=== PATIENT | female | born 1940 | race Caucasian/White ===

== ENCOUNTER 2018-10-27 15:09 | Outpatient (CLI) | payer MEDICARE, MEDICAID ==
[~2018-10-27] VITALS: Ht 172.7 cm; Wt 73.0 kg
[2018-10-27] MEDS ORDERED: LEVO75TA6 PO (15:19)
[2018-10-27] MEDS ORDERED: PREG75CA PO (15:19)
[2018-10-27] MEDS ORDERED: TRAZ150T72 PO (15:19)
[2018-10-27] MEDS ORDERED: OLAN2.5T27 PO (15:19)
[2018-10-27] MEDS ORDERED: DICY10CA12 PO (15:19)
[2018-10-27] MEDS ORDERED: VENL100T2 PO (15:19)
== END 2018-10-27 15:23 | disposition home or self-care (01) ==
LOC: PREOP 15:09
PROVIDERS: ATTEND Otolaryngology Otolaryngology/Facial Plastic Surgery
DX: Z01.818 Encounter for other preprocedural examination (principal)

== ENCOUNTER 2018-10-31 06:33 | Day surgery (SDC) | payer MEDICARE, MEDICAID ==
[~2018-10-31] VITALS: Ht 172.7 cm; Wt 73.0 kg
[~2018-10-31 06:33] MED LIST: DICY10CA12 PO; LEVO75TA6 PO; OLAN2.5T27 PO; PREG75CA PO; TRAZ150T72 PO; VENL100T2 PO
--- OUTSIDE RECORDS SUMMARY | 2018-10-31 06:37 | XMS REPORT | Clinical Summary ---
Author Author Admin, E Organization [facility] Address Unknown Phone Unavailable Allergies, Adverse Reactions, Alerts Allergy Name Reaction Description Start Date Severity Status Provider MORPHINE Critical Active Navjot Skinner RMA PENICILLIN Critical Active Navjot Skinner RMA Conditions or Problems Problem Name Problem Code Onset Date Status Entry Date Provider Comment Standard Description Annotate ATRIAL FIBRILLATION 427.31 Active Navjot Skinner RMA Atrial fibrillation ANXIETY DISORDER 300.00 Active Navjot Skinner RMA Anxiety state, unspecified DEPRESSION 311 Active Navjot Skinner RMSuzan Depressive disorder, not elsewhere classified FH 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 Alex Davidson MD Other ventral hernia without mention of obstruction or gangrene Change in bowel habit Active Alex Davidson MD Other symptoms involving digestive system Dysphagia unspecified Active Alex Davidson MD Dysphagia, unspecified Body Mass Index 23.0-23.9 Adult Active Alex Davidson MD Body Mass Index between 19-24, adult GERD ICD-530.81 Inactive Agustina Charlton CASH CROP FARMER HELICOBACTER PYLORI INFECTION ICD-041.86 Inactive Agustina Charlton CASH CROP FARMER AFTERCARE FOLLOW SURGERY MUSCULOSKEL SYSTEM NEC ICD-V58.78 12/09 Inactive Agustina Charlton CASH CROP FARMER CHANGE IN BOWELS ICD-787.99 Inactive Alex Davidson MD DYSPHAGIA UNSPECIFIED ICD-787.20 Inactive Alex Davidson MD Medication List Medication Instructions Start Date Stop Date Generic Name NDC Status Provider Patient Instruction HYDROCODONE-ACETAMINOPHEN 5-325 MG ORAL TABLET 1-2 q 4-6 hrs prn HYDROCODONE-ACETAMINOPHEN 55742934657 No Longer Active Alex Davidson MD Active ACIDOPHILUS 100 MG ORAL CAPSULE 1 -3 tab q d prn LACTOBACILLUS 62070246928 No Longer Active Alex Davidson MD Active ALPRAZOLAM 1 MG ORAL TABLET 1/2 tab bid prn ALPRAZOLAM 20366272412 No Longer Active Alex Davidson MD Active EFFEXOR XR 37.5 MG ORAL CAPSULE EXTENDED RELEASE 24 HOUR 1qd 2017 VENLAFAXINE HCL 91345379131 No Longer Active Alex Davidson MD Active MELOXICAM 15 MG ORAL TABLET 1 BID MELOXICAM 08916919243 Active Alex Davidson MD Active LYRICA 50 MG ORAL CAPSULE 1 TID PREGABALIN 29666926727 Active Aelx Davidson MD Active OLANZAPINE 5 MG ORAL TABLET 1 TAB PM OLANZAPINE 29910142719 Active Alex Davidson MD Active VENLAFAXINE HCL 100 MG ORAL TABLET 1 BID VENLAFAXINE HCL 49557747130 Active Alex Davidson MD Active OXYBUTYNIN CHLORIDE ER 10 MG ORAL TABLET EXTENDED RELEASE 24 HOUR 1 DAILY OXYBUTYNIN CHLORIDE 02556975986 Active Alex Davidson MD Active LEVO-T 50 MCG ORAL TABLET 1 DAILY LEVOTHYROXINE SODIUM 74543797131 Active Alex Davidson MD Active LEVOXYL 100 MCG ORAL TABLET 1 qd LEVOTHYROXINE SODIUM 67796031580 No Longer Active MAI Briseno Active PREVPAC ORAL as directed AMOXICILL-CLARITHRO- LANSOPRAZ 66767566814 No Longer Active MAI Briseno Active TRAZODONE HCL 150 MG ORAL TABLET 1 qhs TRAZODONE HCL 84838464061 Active Alex Davidson MD Active PREVPAC ORAL as directed PREVPAC ORAL 218735 [id number] Inactive LEVOXYL 100 MCG ORAL TABLET 1 qd LEVOXYL 100 MCG ORAL TABLET 663467 LEVOTHYROXINE SODIUM Inactive EFFEXOR XR 37.5 MG ORAL CAPSULE EXTENDED RELEASE 24 HOUR 1qd 2017 EFFEXOR XR 37.5 MG ORAL CAPSULE EXTENDED RELEASE 24 HOUR VENLAFAXINE HCL Inactive ALPRAZOLAM 1 MG ORAL TABLET 1/2 tab bid prn ALPRAZOLAM 1 MG ORAL TABLET 437452 ALPRAZOLAM Inactive ACIDOPHILUS 100 MG ORAL CAPSULE 1 -3 tab q d prn ACIDOPHILUS 100 MG ORAL CAPSULE LACTOBACILLUS Inactive HYDROCODONE-ACETAMINOPHEN 5-325 MG ORAL TABLET 1-2 q 4-6 hrs prn HYDROCODONE-ACETAMINOPHEN 5-325 MG ORAL TABLET 889647 HYDROCODONE- ACETAMINOPHEN Inactive Advance Directives Directive Description Start Date PERMISSION TO SHARE Vital Signs Date Name Value Unit Range Description blood pressure, diastolic 78 mm[Hg] BP ledbetter blood pressure, systolic 120 mm[Hg] BP sys height E&M 67 [in_us] Bdy height pulse rate E&M 60 /min Heart rate temperature E&M 97.5 [degF] Body temperature weight E&M 152 [lb_av] Weight Measured blood pressure, diastolic 70 mm[Hg] BP ledbetter blood pressure, systolic 106 mm[Hg] BP sys pulse rate E&M 60 /min Heart rate temperature E&M 97.7 [degF] Body temperature weight E&M 149 [lb_av] Weight Measured Encounters Code Encounter Date Provider Facility CPT-33488 Level 4 New Patient 16:36:32 CDT Alex Davidson MD [facility] Procedures Code Procedure Name Date Entry Date Standard Description CPT-87748 Postop F/U Visit 16:34:58 OCCUPATIONAL HEALTH AND SAFETY ADVISER CPT-OV Office Visit 16:14:11 OCCUPATIONAL HEALTH AND SAFETY ADVISER CPT-11469 Postop F/U Visit 09:47:57 CDT CPT-19163 No Charge Offi Visit 10:41:21 CDT CPT-OV Office Visit 11:34:31 CDT CPT-OV Office Visit 11:19:37 CDT
--- OUTSIDE RECORDS SUMMARY | 2018-10-31 06:37 | XMS REPORT | Clinical Summary ---
Author Author Admin, E Organization [facility] Address Unknown Phone Unavailable Allergies, Adverse Reactions, Alerts Allergy Name Reaction Description Start Date Severity Status Provider MORPHINE Critical Active Navjot Skinner RMA PENICILLIN Critical Active Navjot Skinner, RMA Conditions or Problems Problem Name Problem Code Onset Date Status Entry Date Provider Comment Standard Description Annotate ATRIAL FIBRILLATION 427.31 Active Navjot Skinner RMA Atrial fibrillation ANXIETY DISORDER 300.00 Active Navjot Skinner RMA Anxiety state, unspecified DEPRESSION 311 Active Navjot Skinner RMSuzan Depressive disorder, not elsewhere classified FH 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 Navjot Skinner, RMA Family history of stroke (cerebrovascular) GERD [...] 19-24, adult GERD ICD-530.81 Inactive Agustina Charlton GENETIC SUPERVISOR HELICOBACTER PYLORI INFECTION ICD-041.86 Inactive Agustina Charlton GENETIC SUPERVISOR AFTERCARE FOLLOW SURGERY MUSCULOSKEL SYSTEM NEC ICD-V58.78 12/09 Inactive Agustina Charlton GENETIC SUPERVISOR CHANGE IN BOWELS ICD-787.99 Inactive Alex Davidson MD DYSPHAGIA UNSPECIFIED ICD-787.20 Inactive Alex Davidson MD Medication List Medication Instructions Start Date Stop Date Generic Name NDC Status Provider Patient Instruction HYDROCODONE-ACETAMINOPHEN 5-325 MG ORAL TABLET 1-2 q 4-6 hrs prn HYDROCODONE-ACETAMINOPHEN 83892851138 No Longer Active Alex Davidson MD Active ACIDOPHILUS 100 MG ORAL CAPSULE 1 -3 tab q d prn LACTOBACILLUS 08957104833 No Longer Active Alex Davidson MD Active ALPRAZOLAM 1 MG ORAL TABLET 1/2 tab bid prn ALPRAZOLAM 27765157809 No Longer Active Alex Davidson MD Active EFFEXOR XR 37.5 MG ORAL CAPSULE EXTENDED RELEASE 24 HOUR 1qd 2017 VENLAFAXINE HCL 09475107137 No Longer Active Alex Davidson MD Active MELOXICAM 15 MG ORAL TABLET 1 BID MELOXICAM 05982291031 Active Alex Davidson MD Active LYRICA 50 MG ORAL CAPSULE 1 TID PREGABALIN 76159254471 Active Alex Davidson MD Active OLANZAPINE 5 MG ORAL TABLET 1 TAB PM OLANZAPINE 55897767728 Active Alex Davidson MD Active VENLAFAXINE HCL 100 MG ORAL TABLET 1 BID VENLAFAXINE HCL 72311240140 Active Alex Davidson MD Active OXYBUTYNIN CHLORIDE ER 10 MG ORAL TABLET EXTENDED RELEASE 24 HOUR 1 DAILY OXYBUTYNIN CHLORIDE 32672335435 Active Alex Davidson MD Active LEVO-T 50 MCG ORAL TABLET 1 DAILY LEVOTHYROXINE SODIUM 95430683702 Active Alex Davidson MD Active LEVOXYL 100 MCG ORAL TABLET 1 qd LEVOTHYROXINE SODIUM 38469088138 No Longer Active MAI Briseno Active PREVPAC ORAL as directed AMOXICILL-CLARITHRO- LANSOPRAZ 26587396682 No Longer Active MAI Briseno Active TRAZODONE HCL 150 MG ORAL TABLET 1 qhs TRAZODONE HCL 85778847011 Active Alex Davidson MD Active PREVPAC ORAL as directed PREVPAC ORAL 146624 [id number] Inactive LEVOXYL 100 MCG ORAL TABLET 1 qd LEVOXYL 100 MCG ORAL TABLET 831218 LEVOTHYROXINE SODIUM Inactive EFFEXOR XR 37.5 MG ORAL CAPSULE EXTENDED RELEASE 24 HOUR 1qd 2017 EFFEXOR XR 37.5 MG ORAL CAPSULE EXTENDED RELEASE 24 HOUR VENLAFAXINE HCL Inactive ALPRAZOLAM 1 MG ORAL TABLET 1/2 tab bid prn ALPRAZOLAM 1 MG ORAL TABLET 956226 ALPRAZOLAM Inactive ACIDOPHILUS 100 MG ORAL CAPSULE 1 -3 tab q d prn ACIDOPHILUS 100 MG ORAL CAPSULE LACTOBACILLUS Inactive HYDROCODONE-ACETAMINOPHEN 5-325 MG ORAL TABLET 1-2 q 4-6 hrs prn HYDROCODONE-ACETAMINOPHEN 5-325 MG ORAL TABLET 971875 HYDROCODONE- ACETAMINOPHEN Inactive Advance Directives Directive Description [...] Measured Encounters Code Encounter Date Provider Facility CPT-32512 Level 4 New Patient 16:36:32 CDT Alex Davidson MD [facility] Procedures Code Procedure Name Date Entry Date Standard Description CPT-48023 Postop F/U Visit 16:34:58 RIGGING AND CONTROLS AIRCRAFT MECHANIC CPT-OV Office Visit 16:14:11 RIGGING AND CONTROLS AIRCRAFT MECHANIC CPT-66971 Postop F/U Visit 09:47:57 CDT CPT-94437 No Charge Offi Visit 10:41:21 CDT CPT-OV Office Visit 11:34:31 CDT CPT-OV Office Visit 11:19:37 CDT
--- OUTSIDE RECORDS SUMMARY | 2018-10-31 06:38 | XMS REPORT | Clinical Summary ---
Author Author Admin, E Organization [facility] Address Unknown Phone Unavailable Allergies, Adverse Reactions, [...] 19-24, adult GERD ICD-530.81 Inactive Agustina Charlton SALES REPRESENTATIVE HELICOBACTER PYLORI INFECTION ICD-041.86 Inactive Agustina Charlton SALES REPRESENTATIVE AFTERCARE FOLLOW SURGERY MUSCULOSKEL SYSTEM NEC ICD-V58.78 12/09 Inactive Agustina Charlton SALES REPRESENTATIVE CHANGE IN BOWELS ICD-787.99 Inactive Alex Davidson MD DYSPHAGIA UNSPECIFIED ICD-787.20 Inactive Alex Davidson MD Medication List Medication Instructions Start Date Stop Date Generic Name NDC Status Provider Patient Instruction HYDROCODONE-ACETAMINOPHEN 5-325 MG ORAL TABLET 1-2 q 4-6 hrs prn HYDROCODONE-ACETAMINOPHEN 39755849970 No Longer Active Alex Davidson MD Active ACIDOPHILUS 100 MG ORAL CAPSULE 1 -3 tab q d prn LACTOBACILLUS 74326502405 No Longer Active Alex Davidson MD Active ALPRAZOLAM 1 MG ORAL TABLET 1/2 tab bid prn ALPRAZOLAM 72223890239 No Longer Active Alex Davidson MD Active EFFEXOR XR 37.5 MG ORAL CAPSULE EXTENDED RELEASE 24 HOUR 1qd 2017 VENLAFAXINE HCL 67278391427 No Longer Active Alex Davidson MD Active MELOXICAM 15 MG ORAL TABLET 1 BID MELOXICAM 42099566464 Active Alex Davidson MD Active LYRICA 50 MG ORAL CAPSULE 1 TID PREGABALIN 56346895974 Active Alex Davidson MD Active OLANZAPINE 5 MG ORAL TABLET 1 TAB PM OLANZAPINE 74056232104 Active Alex Davidson MD Active VENLAFAXINE HCL 100 MG ORAL TABLET 1 BID VENLAFAXINE HCL 12846447028 Active Alex Davidson MD Active OXYBUTYNIN CHLORIDE ER 10 MG ORAL TABLET EXTENDED RELEASE 24 HOUR 1 DAILY OXYBUTYNIN CHLORIDE 75559287035 Active Alex Davidson MD Active LEVO-T 50 MCG ORAL TABLET 1 DAILY LEVOTHYROXINE SODIUM 50907365740 Active Alex Davidson MD Active LEVOXYL 100 MCG ORAL TABLET 1 qd LEVOTHYROXINE SODIUM 06818130417 No Longer Active MAI Briseno Active PREVPAC ORAL as directed AMOXICILL-CLARITHRO- LANSOPRAZ 54167140287 No Longer Active MAI Briseno Active TRAZODONE HCL 150 MG ORAL TABLET 1 qhs TRAZODONE HCL 89846151790 Active Alex Davidson MD Active PREVPAC ORAL as directed PREVPAC ORAL 381560 [id number] Inactive LEVOXYL 100 MCG ORAL TABLET 1 qd LEVOXYL 100 MCG ORAL TABLET 705322 LEVOTHYROXINE SODIUM Inactive EFFEXOR XR 37.5 MG ORAL CAPSULE EXTENDED RELEASE 24 HOUR 1qd 2017 EFFEXOR XR 37.5 MG ORAL CAPSULE EXTENDED RELEASE 24 HOUR VENLAFAXINE HCL Inactive ALPRAZOLAM 1 MG ORAL TABLET 1/2 tab bid prn ALPRAZOLAM 1 MG ORAL TABLET 454385 ALPRAZOLAM Inactive ACIDOPHILUS 100 MG ORAL CAPSULE 1 -3 tab q d prn ACIDOPHILUS 100 MG ORAL CAPSULE LACTOBACILLUS Inactive HYDROCODONE-ACETAMINOPHEN 5-325 MG ORAL TABLET 1-2 q 4-6 hrs prn HYDROCODONE-ACETAMINOPHEN 5-325 MG ORAL TABLET 163952 HYDROCODONE- ACETAMINOPHEN Inactive Vital Signs Date Name Value Unit Range [...] Measured Encounters Code Encounter Date Provider Facility CPT-21877 Level 4 New Patient 16:36:32 CDT Alex Davidson MD [facility] Procedures Code Procedure Name Date Entry Date Standard Description CPT-07827 Postop F/U Visit 16:34:58 CUFF SETTER LOCKSTITCH CPT-OV Office Visit 16:14:11 CUFF SETTER LOCKSTITCH CPT-49824 Postop F/U Visit 09:47:57 CDT CPT-88527 No Charge Offi Visit 10:41:21 CDT CPT-OV Office Visit 11:34:31 CDT CPT-OV Office Visit 11:19:37 CDT
--- OUTSIDE RECORDS SUMMARY | 2018-10-31 06:38 | XMS REPORT | Clinical Summary ---
Author Author Admin, E Organization [facility] [employer] Address Unknown Phone Unavailable Allergies, Adverse Reactions, [...] 19-24, adult GERD ICD-530.81 Inactive Agustina Charlton OFFICE CLERK ASSISTANT HELICOBACTER PYLORI INFECTION ICD-041.86 Inactive Agustina Charlton OFFICE CLERK ASSISTANT AFTERCARE FOLLOW SURGERY MUSCULOSKEL SYSTEM NEC ICD-V58.78 12/09 Inactive Agustina Charlton OFFICE CLERK ASSISTANT CHANGE IN BOWELS ICD-787.99 Inactive Alex Davidson MD DYSPHAGIA UNSPECIFIED ICD-787.20 Inactive Alex Davidson MD Medication List Medication Instructions Start Date Stop Date Generic Name NDC Status Provider Patient Instruction HYDROCODONE-ACETAMINOPHEN 5-325 MG ORAL TABLET 1-2 q 4-6 hrs prn HYDROCODONE-ACETAMINOPHEN 42372266106 No Longer Active Alex Davidson MD Active ACIDOPHILUS 100 MG ORAL CAPSULE 1 -3 tab q d prn LACTOBACILLUS 44085813185 No Longer Active Alex Davidson MD Active ALPRAZOLAM 1 MG ORAL TABLET 1/2 tab bid prn ALPRAZOLAM 67255845097 No Longer Active Aelx Davidson MD Active EFFEXOR XR 37.5 MG ORAL CAPSULE EXTENDED RELEASE 24 HOUR 1qd 2017 VENLAFAXINE HCL 19733902257 No Longer Active Alex Davidson MD Active MELOXICAM 15 MG ORAL TABLET 1 BID MELOXICAM 40436965150 Active Alex Davidson MD Active LYRICA 50 MG ORAL CAPSULE 1 TID PREGABALIN 35242959348 Active Alex Davidson MD Active OLANZAPINE 5 MG ORAL TABLET 1 TAB PM OLANZAPINE 34064050823 Active Alex Davidson MD Active VENLAFAXINE HCL 100 MG ORAL TABLET 1 BID VENLAFAXINE HCL 05248482976 Active Alex Davidson MD Active OXYBUTYNIN CHLORIDE ER 10 MG ORAL TABLET EXTENDED RELEASE 24 HOUR 1 DAILY OXYBUTYNIN CHLORIDE 61336071049 Active Alex Davidson MD Active LEVO-T 50 MCG ORAL TABLET 1 DAILY LEVOTHYROXINE SODIUM 38302016868 Active Alex Davidson MD Active LEVOXYL 100 MCG ORAL TABLET 1 qd LEVOTHYROXINE SODIUM 90703220060 No Longer Active MAI Briseno Active PREVPAC ORAL as directed AMOXICILL-CLARITHRO- LANSOPRAZ 72078834502 No Longer Active MAI Briseno Active TRAZODONE HCL 150 MG ORAL TABLET 1 qhs TRAZODONE HCL 42221375912 Active Alex Davidson MD Active PREVPAC ORAL as directed PREVPAC ORAL 649794 [id number] Inactive LEVOXYL 100 MCG ORAL TABLET 1 qd LEVOXYL 100 MCG ORAL TABLET 016681 LEVOTHYROXINE SODIUM Inactive EFFEXOR XR 37.5 MG ORAL CAPSULE EXTENDED RELEASE 24 HOUR 1qd 2017 EFFEXOR XR 37.5 MG ORAL CAPSULE EXTENDED RELEASE 24 HOUR VENLAFAXINE HCL Inactive ALPRAZOLAM 1 MG ORAL TABLET 1/2 tab bid prn ALPRAZOLAM 1 MG ORAL TABLET 080979 ALPRAZOLAM Inactive ACIDOPHILUS 100 MG ORAL CAPSULE 1 -3 tab q d prn ACIDOPHILUS 100 MG ORAL CAPSULE LACTOBACILLUS Inactive HYDROCODONE-ACETAMINOPHEN 5-325 MG ORAL TABLET 1-2 q 4-6 hrs prn HYDROCODONE-ACETAMINOPHEN 5-325 MG ORAL TABLET 871088 HYDROCODONE- ACETAMINOPHEN Inactive Advance Directives Directive Description [...] Measured Encounters Code Encounter Date Provider Facility CPT-75790 Level 4 New Patient 16:36:32 CDT Alex Davidson MD [facility] Procedures Code Procedure Name Date Entry Date Standard Description CPT-58831 Postop F/U Visit 16:34:58 DECK CADET CPT-OV Office Visit 16:14:11 DECK CADET CPT-83155 Postop F/U Visit 09:47:57 CDT CPT-56341 No Charge Offi Visit 10:41:21 CDT CPT-OV Office Visit 11:34:31 CDT CPT-OV Office Visit 11:19:37 CDT
--- OUTSIDE RECORDS SUMMARY | 2018-10-31 06:38 | XMS REPORT ---
Author Author Admin, E Organization [facility] [email or web address] Address Unknown Phone Unavailable Allergies, Adverse Reactions, [...] 19-24, adult GERD ICD-530.81 Inactive Agustina Charlton AGRICULTURAL EQUIPMENT DESIGN ENGINEER HELICOBACTER PYLORI INFECTION ICD-041.86 Inactive Agustina Charlton AGRICULTURAL EQUIPMENT DESIGN ENGINEER AFTERCARE FOLLOW SURGERY MUSCULOSKEL SYSTEM NEC ICD-V58.78 12/09 Inactive Agustina Charlton AGRICULTURAL EQUIPMENT DESIGN ENGINEER CHANGE IN BOWELS ICD-787.99 Inactive Alex Davidson MD DYSPHAGIA UNSPECIFIED ICD-787.20 Inactive Alex Davidson MD Medication List Medication Instructions Start Date Stop Date Generic Name NDC Status Provider Patient Instruction HYDROCODONE-ACETAMINOPHEN 5-325 MG ORAL TABLET 1-2 q 4-6 hrs prn HYDROCODONE-ACETAMINOPHEN 04925369588 No Longer Active Alex Davidson MD Active ACIDOPHILUS 100 MG ORAL CAPSULE 1 -3 tab q d prn LACTOBACILLUS 02796225057 No Longer Active Alex Davidson MD Active ALPRAZOLAM 1 MG ORAL TABLET 1/2 tab bid prn ALPRAZOLAM 35954003925 No Longer Active Alex Davidson MD Active EFFEXOR XR 37.5 MG ORAL CAPSULE EXTENDED RELEASE 24 HOUR 1qd 2017 VENLAFAXINE HCL 75471044286 No Longer Active Alex Davidson MD Active MELOXICAM 15 MG ORAL TABLET 1 BID MELOXICAM 38515372722 Active Alex Davidson MD Active LYRICA 50 MG ORAL CAPSULE 1 TID PREGABALIN 73235863499 Active Alex Davidson MD Active OLANZAPINE 5 MG ORAL TABLET 1 TAB PM OLANZAPINE 73141906391 Active Alex Davidson MD Active VENLAFAXINE HCL 100 MG ORAL TABLET 1 BID VENLAFAXINE HCL 13883880299 Active Alex Davidson MD Active OXYBUTYNIN CHLORIDE ER 10 MG ORAL TABLET EXTENDED RELEASE 24 HOUR 1 DAILY OXYBUTYNIN CHLORIDE 52885849295 Active Alex Davidson MD Active LEVO-T 50 MCG ORAL TABLET 1 DAILY LEVOTHYROXINE SODIUM 25870797197 Active Alex Davidson MD Active LEVOXYL 100 MCG ORAL TABLET 1 qd LEVOTHYROXINE SODIUM 58547672364 No Longer Active MAI Briseno Active PREVPAC ORAL as directed AMOXICILL-CLARITHRO- LANSOPRAZ 42680566622 No Longer Active MAI Briseno Active TRAZODONE HCL 150 MG ORAL TABLET 1 qhs TRAZODONE HCL 36272176861 Active Alex Davidson MD Active PREVPAC ORAL as directed PREVPAC ORAL 696694 [id number] Inactive LEVOXYL 100 MCG ORAL TABLET 1 qd LEVOXYL 100 MCG ORAL TABLET 325792 LEVOTHYROXINE SODIUM Inactive EFFEXOR XR 37.5 MG ORAL CAPSULE EXTENDED RELEASE 24 HOUR 1qd 2017 EFFEXOR XR 37.5 MG ORAL CAPSULE EXTENDED RELEASE 24 HOUR VENLAFAXINE HCL Inactive ALPRAZOLAM 1 MG ORAL TABLET 1/2 tab bid prn ALPRAZOLAM 1 MG ORAL TABLET 205345 ALPRAZOLAM Inactive ACIDOPHILUS 100 MG ORAL CAPSULE 1 -3 tab q d prn ACIDOPHILUS 100 MG ORAL CAPSULE LACTOBACILLUS Inactive HYDROCODONE-ACETAMINOPHEN 5-325 MG ORAL TABLET 1-2 q 4-6 hrs prn HYDROCODONE-ACETAMINOPHEN 5-325 MG ORAL TABLET 714018 HYDROCODONE- ACETAMINOPHEN Inactive Vital Signs Date Name [...] Measured Encounters Code Encounter Date Provider Facility CPT-02736 Level 4 New Patient 16:36:32 CDT Alex Davidson MD [facility] Procedures Code Procedure Name Date Entry Date Standard Description CPT-12875 Postop F/U Visit 16:34:58 BROADLOOM WEAVER CPT-OV Office Visit 16:14:11 BROADLOOM WEAVER CPT-01665 Postop F/U Visit 09:47:57 CDT CPT-79576 No Charge Offi Visit 10:41:21 CDT CPT-OV Office Visit 11:34:31 CDT CPT-OV Office Visit 11:19:37 CDT
--- OUTSIDE RECORDS SUMMARY | 2018-10-31 06:38 | XMS REPORT | Clinical Summary ---
Author Author Admin, E Organization [facility] Address Unknown Phone Unavailable Allergies, Adverse Reactions, [...] 19-24, adult GERD ICD-530.81 Inactive Agustina Charlton SUPERVISOR INVENTORY MERCHANDISING HELICOBACTER PYLORI INFECTION ICD-041.86 Inactive Agustina Charlton SUPERVISOR INVENTORY MERCHANDISING AFTERCARE FOLLOW SURGERY MUSCULOSKEL SYSTEM NEC ICD-V58.78 12/09 Inactive Agustina Charlton SUPERVISOR INVENTORY MERCHANDISING CHANGE IN BOWELS ICD-787.99 Inactive Alex Davidson MD DYSPHAGIA UNSPECIFIED ICD-787.20 Inactive Alex Davidson MD Medication List Medication Instructions Start Date Stop Date Generic Name NDC Status Provider Patient Instruction HYDROCODONE-ACETAMINOPHEN 5-325 MG ORAL TABLET 1-2 q 4-6 hrs prn HYDROCODONE-ACETAMINOPHEN 88228550522 No Longer Active Alex Davidson MD Active ACIDOPHILUS 100 MG ORAL CAPSULE 1 -3 tab q d prn LACTOBACILLUS 39574055856 No Longer Active Alex Davidson MD Active ALPRAZOLAM 1 MG ORAL TABLET 1/2 tab bid prn ALPRAZOLAM 58695517618 No Longer Active Alex Davidson MD Active EFFEXOR XR 37.5 MG ORAL CAPSULE EXTENDED RELEASE 24 HOUR 1qd 2017 VENLAFAXINE HCL 09996103225 No Longer Active Alex Davidson MD Active MELOXICAM 15 MG ORAL TABLET 1 BID MELOXICAM 11446917279 Active Alex Davidson MD Active LYRICA 50 MG ORAL CAPSULE 1 TID PREGABALIN 45596332609 Active Alex Davidson MD Active OLANZAPINE 5 MG ORAL TABLET 1 TAB PM OLANZAPINE 12267692845 Active Alex Davidson MD Active VENLAFAXINE HCL 100 MG ORAL TABLET 1 BID VENLAFAXINE HCL 56021708046 Active Alex Davidson MD Active OXYBUTYNIN CHLORIDE ER 10 MG ORAL TABLET EXTENDED RELEASE 24 HOUR 1 DAILY OXYBUTYNIN CHLORIDE 48283880607 Active Alex Davidson MD Active LEVO-T 50 MCG ORAL TABLET 1 DAILY LEVOTHYROXINE SODIUM 82002980505 Active Alex Davidson MD Active LEVOXYL 100 MCG ORAL TABLET 1 qd LEVOTHYROXINE SODIUM 77554374312 No Longer Active MAI Briseno Active PREVPAC ORAL as directed AMOXICILL-CLARITHRO- LANSOPRAZ 00687085199 No Longer Active MAI Briseno Active TRAZODONE HCL 150 MG ORAL TABLET 1 qhs TRAZODONE HCL 74571623853 Active Alex Davidson MD Active PREVPAC ORAL as directed PREVPAC ORAL 727806 [id number] Inactive LEVOXYL 100 MCG ORAL TABLET 1 qd LEVOXYL 100 MCG ORAL TABLET 687672 LEVOTHYROXINE SODIUM Inactive EFFEXOR XR 37.5 MG ORAL CAPSULE EXTENDED RELEASE 24 HOUR 1qd 2017 EFFEXOR XR 37.5 MG ORAL CAPSULE EXTENDED RELEASE 24 HOUR VENLAFAXINE HCL Inactive ALPRAZOLAM 1 MG ORAL TABLET 1/2 tab bid prn ALPRAZOLAM 1 MG ORAL TABLET 879581 ALPRAZOLAM Inactive ACIDOPHILUS 100 MG ORAL CAPSULE 1 -3 tab q d prn ACIDOPHILUS 100 MG ORAL CAPSULE LACTOBACILLUS Inactive HYDROCODONE-ACETAMINOPHEN 5-325 MG ORAL TABLET 1-2 q 4-6 hrs prn HYDROCODONE-ACETAMINOPHEN 5-325 MG ORAL TABLET 050816 HYDROCODONE- ACETAMINOPHEN Inactive Advance Directives Directive Description [...] Measured Encounters Code Encounter Date Provider Facility CPT-88606 Level 4 New Patient 16:36:32 CDT Alex Davidson MD [facility] Procedures Code Procedure Name Date Entry Date Standard Description CPT-83942 Postop F/U Visit 16:34:58 SUBCONTRACT MANAGER CPT-OV Office Visit 16:14:11 SUBCONTRACT MANAGER CPT-35557 Postop F/U Visit 09:47:57 CDT CPT-01669 No Charge Offi Visit 10:41:21 CDT CPT-OV Office Visit 11:34:31 CDT CPT-OV Office Visit 11:19:37 CDT
--- OUTSIDE RECORDS SUMMARY | 2018-10-31 06:38 | XMS REPORT | Clinical Summary ---
Author Author Admin, [facility] [facility] 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5 MG ORAL CAPSULE EXTENDED RELEASE 24 HOUR 1qd 2017 VENLAFAXINE HCL 97564889166 No Longer Active Alex Davidson MD Active MELOXICAM 15 MG ORAL TABLET 1 BID MELOXICAM 54455275550 Active Alex Davidson MD Active LYRICA 50 MG ORAL CAPSULE 1 TID PREGABALIN 42633545271 Active Alex Davidson MD Active OLANZAPINE 5 MG ORAL TABLET 1 TAB PM OLANZAPINE 63999808307 Active Alex Davidson MD Active VENLAFAXINE HCL 100 MG ORAL TABLET 1 BID VENLAFAXINE HCL 40656634133 Active Alex Davidson MD Active OXYBUTYNIN CHLORIDE ER 10 MG ORAL TABLET EXTENDED RELEASE 24 HOUR 1 DAILY OXYBUTYNIN CHLORIDE 49321011232 Active Alex Davidson MD Active LEVO-T 50 MCG ORAL TABLET 1 DAILY LEVOTHYROXINE SODIUM 17929067882 Active Alex Davidson MD Active LEVOXYL 100 MCG ORAL TABLET 1 qd LEVOTHYROXINE SODIUM 25673735886 No Longer Active MAI Briseno Active PREVPAC ORAL as directed AMOXICILL-CLARITHRO- LANSOPRAZ 84131821862 No Longer Active Navjot DAISY SkinnerSuzan Active TRAZODONE HCL 150 MG ORAL TABLET 1 qhs TRAZODONE HCL 30959016979 Active Alex Davidson MD Active PREVPAC ORAL as directed PREVPAC ORAL 335511 [id number] Inactive LEVOXYL 100 MCG ORAL TABLET 1 qd LEVOXYL 100 MCG ORAL TABLET 787523 LEVOTHYROXINE SODIUM Inactive EFFEXOR XR 37.5 MG ORAL CAPSULE EXTENDED RELEASE 24 HOUR 1qd 2017 EFFEXOR XR 37.5 MG ORAL CAPSULE EXTENDED RELEASE 24 HOUR VENLAFAXINE HCL Inactive ALPRAZOLAM 1 MG ORAL TABLET 1/2 tab bid prn ALPRAZOLAM 1 MG ORAL TABLET 925895 ALPRAZOLAM Inactive ACIDOPHILUS 100 MG ORAL CAPSULE 1 -3 tab q d prn ACIDOPHILUS 100 MG ORAL CAPSULE LACTOBACILLUS Inactive HYDROCODONE-ACETAMINOPHEN 5-325 MG ORAL TABLET 1-2 q 4-6 hrs prn HYDROCODONE-ACETAMINOPHEN 5-325 MG ORAL TABLET 289040 HYDROCODONE- ACETAMINOPHEN Inactive Vital Signs Date Name Value Unit Range Description blood pressure, diastolic 70 mm[Hg] BP ledbetter blood pressure, systolic 106 mm[Hg] BP sys pulse rate E&M 60 /min Heart rate temperature E&M 97.7 [degF] Body temperature weight E&M 149 [lb_av] Weight Measured Procedures Code Procedure Name Date Entry Date Standard Description CPT-91797 Postop F/U Visit 16:34:58 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
--- OUTSIDE RECORDS SUMMARY | 2018-10-31 06:39 | XMS REPORT | Clinical Summary ---
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 ICD-787.99 Inactive Alex Davidson MD DYSPHAGIA UNSPECIFIED ICD-787.20 Inactive Alex Davidson MD Medication List Medication Instructions Start Date Stop Date Generic Name NDC Status Provider Patient Instruction HYDROCODONE-ACETAMINOPHEN 5-325 MG ORAL TABLET 1-2 q 4-6 hrs prn HYDROCODONE-ACETAMINOPHEN 87439910290 No Longer Active Alex Davidson MD Active ACIDOPHILUS 100 MG ORAL CAPSULE 1 -3 tab q d prn LACTOBACILLUS 16779168179 No Longer Active Alex Davidson MD Active ALPRAZOLAM 1 MG ORAL TABLET 1/2 tab bid prn ALPRAZOLAM 89540052471 No Longer Active Alex Davidson MD Active EFFEXOR XR 37.5 MG ORAL CAPSULE EXTENDED RELEASE 24 HOUR 1qd 2017 VENLAFAXINE HCL 37065615013 No Longer Active Alex Davidson MD Active MELOXICAM 15 MG ORAL TABLET 1 BID MELOXICAM 98118051220 Active Alex Davidson MD Active LYRICA 50 MG ORAL CAPSULE 1 TID PREGABALIN 27411748361 Active Alex Davidson MD Active OLANZAPINE 5 MG ORAL TABLET 1 TAB PM OLANZAPINE 71408403605 Active Alex Davidson MD Active VENLAFAXINE HCL 100 MG ORAL TABLET 1 BID VENLAFAXINE HCL 57068761344 Active Alex Davidson MD Active OXYBUTYNIN CHLORIDE ER 10 MG ORAL TABLET EXTENDED RELEASE 24 HOUR 1 DAILY OXYBUTYNIN CHLORIDE 59182395642 Active Alex Davidson MD Active LEVO-T 50 MCG ORAL TABLET 1 DAILY LEVOTHYROXINE SODIUM 40309336628 Active Alex Davidson MD Active LEVOXYL 100 MCG ORAL TABLET 1 qd LEVOTHYROXINE SODIUM 84021453916 No Longer Active MAI Brisneo Active PREVPAC ORAL as directed AMOXICILL-CLARITHRO- LANSOPRAZ 93828455653 No Longer Active Navjot DAISY SkinnerSuzan Active TRAZODONE HCL 150 MG ORAL TABLET 1 qhs TRAZODONE HCL 11304939579 Active Alex Davidson MD Active PREVPAC ORAL as directed PREVPAC ORAL 782903 [id number] Inactive LEVOXYL 100 MCG ORAL TABLET 1 qd LEVOXYL 100 MCG ORAL TABLET 376739 LEVOTHYROXINE SODIUM Inactive EFFEXOR XR 37.5 MG ORAL CAPSULE EXTENDED RELEASE 24 HOUR 1qd 2017 EFFEXOR XR 37.5 MG ORAL CAPSULE EXTENDED RELEASE 24 HOUR VENLAFAXINE HCL Inactive ALPRAZOLAM 1 MG ORAL TABLET 1/2 tab bid prn ALPRAZOLAM 1 MG ORAL TABLET 942810 ALPRAZOLAM Inactive ACIDOPHILUS 100 MG ORAL CAPSULE 1 -3 tab q d prn ACIDOPHILUS 100 MG ORAL CAPSULE LACTOBACILLUS Inactive HYDROCODONE-ACETAMINOPHEN 5-325 MG ORAL TABLET 1-2 q 4-6 hrs prn HYDROCODONE-ACETAMINOPHEN 5-325 MG ORAL TABLET 535935 HYDROCODONE- ACETAMINOPHEN Inactive Vital Signs Date Name Value Unit Range Description blood pressure, diastolic 70 mm[Hg] BP ledbetter blood pressure, systolic 106 mm[Hg] BP sys pulse rate E&M 60 /min Heart rate temperature E&M 97.7 [degF] Body temperature weight E&M 149 [lb_av] Weight Measured Procedures Code Procedure Name Date Entry Date Standard Description CPT-33522 Postop F/U Visit 16:34:58 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
--- OUTSIDE RECORDS SUMMARY | 2018-10-31 06:40 | XMS REPORT | Continuity of Care Document ---
Author Author [facility] Address Unknown Phone Unavailable Allergies Active Description Code Type Severity Reaction Onset Reported/Identified Relationship to Patient Clinical Status Yes morphine [id number] Drug Moderate N/A Yes penicillin c12709 Drug Severe N/A Yes Dairy Aid 58112 Drug Allergy N/ A N/A Yes gluten 7207 Drug Allergy N/A N/A Yes morphine 1545 Drug Allergy N/A hallucinate,cold sweats,paranoia Yes Penicillins 476 Drug Allergy N/ A Rash Yes red meat Food Allergy N/A N/A Yes wheat 98167 Drug Allergy N/A N/A Yes morphine Drug N/A N/A Yes penicillin Drug N/A N/A Yes MORPHINE Drug Allergy 08/25/2010 Yes MORPHINE 1545 Drug Allergy N/A N/A 08/25/2010 Yes PENICILLIN Drug Allergy 08/25/2010 Yes PENICILLIN Drug Allergy N/A N/A 08/25/2010 Yes *MRSA Drug Allergy 02/20/2012 Yes *MRSA Drug Allergy N/A N/A 02/20/2012 Yes morphine [id number] Drug Allergy Unknown hallucinations 10/27/2018 Yes Penicillins [id number] Drug Allergy Unknown N/A 10/27/2018 Medications There is no data. Problems Date Dx Coded Attending Type Code Diagnosis Diagnosed By 11/27/2012 Keeley 722.4 CERVICAL DISC DEGEN 11/27/2012 D 729.2 NEURALGIA/ NEURITIS NOS 11/27/2012 HORTENSIA SHANKS MD 722.4 CERVICAL DISC DEGEN 11/27/2012 HORTENSIA SHANKS MD 729.2 NEURALGIA/NEURITIS NOS 01/15/2013 HORTENSIA SHANKS MD 729.1 MYALGIA AND MYOSITIS NOS 01/15/2013 HORTENSIA SHANKS MD 729.4 FASCIITIS NOS 01/15/2013 HORTENSIA SHANKS MD 729.1 MYALGIA AND MYOSITIS NOS 01/15/2013 HORTENSIA SHANKS MD 729.4 FASCIITIS NOS 01/20/2013 ELADIA FRANK, KEZIA R Keeley 719.41 JOINT PAIN-SHLDER 02/15/2013 KEZIA MONTILLA MD 719.41 JOINT PAIN-SHLDER 02/15/2013 ELADIA FRANK, KEZIA Mina 722.4 CERVICAL DISC DEGEN 02/26/2013 HORTENSIA SHANKS MD 729.1 MYALGIA AND MYOSITIS NOS 02/26/2013 HORTENSIA SHANKS MD 729.4 FASCIITIS NOS 02/26/2013 HORTENSIA SHANKS MD 729.1 MYALGIA AND MYOSITIS NOS 02/26/2013 HORTENSIA SHANKS MD 729.4 FASCIITIS NOS 03/06/2013 KEZIA MONTILLA MD 719.41 JOINT PAIN-SHLDER 03/06/2013 ELADIA FRANK, KEZIA Mina 722.4 CERVICAL DISC DEGEN 03/26/2013 HORTENSIA SHANKS MD 729.1 MYALGIA AND MYOSITIS NOS 03/26/2013 HORTENSIA SHANKS MD 729.1 MYALGIA AND MYOSITIS NOS 04/01/2013 MICHELLE LUCAS 780.96 GENERALIZED PAIN 04/01/2013 MICHELLE LUCAS 919.4 INSECT BITE NEC 04/01/2013 MICHELLE LUCAS E000.9 EXT CAUSE STATUS NOS 04/01/2013 MICHELLE LUCAS E030 ACTIVITY NOS 04/01/2013 MICHELLE LUCAS E849.[address] NOS 04/01/2013 MICHELLE LUCAS E906.4 NONVENOM ARTHROPOD BITE 05/26/2013 ELADIA FRANK, KEZIA Mina 244.9 HYPOTHYROIDISM NOS 09/21/2013 HORTENSIA SHANKS MD 244.9 HYPOTHYROIDISM NOS 09/21/2013 HORTENSIA SHANKS MD 780.79 OTHER MALAISE & FATIGUE 09/30/2013 NÉSTOR ABDUL DO 709.3 DEGENERATIVE SKIN DISORD 09/30/2013 NÉSTRO ABDUL DO 727.43 GANGLION NOS 10/01/2013 HORTENSIA SHANKS MD 216.8 BENIGN NEOPLASM SKIN NEC 10/01/2013 HORTENSIA SHANKS MD 719.65 JOINT SYMPTOM NEC-PELVIS 10/09/2013 HORTENSIA SHANKS MD 625.9 FEM GENITAL SYMPTOMS NOS 10/09/2013 HORTENSIA SHANKS MD 719.45 JOINT PAIN-PELVIS 10/09/2013 HORTENSIA SHANKS MD 724.2 LUMBAGO 10/09/2013 HORTENSIA SHANKS MD 959.9 INJURY-SITE NOS 10/09/2013 HORTENSIA SHANKS MD E000.9 EXT CAUSE STATUS NOS 10/09/2013 HORTENSIA SHANKS MD E030 ACTIVITY NOS 10/09/2013 HORTENSIA SHANKS MD E849.0 ACCIDENT IN HOME 10/09/2013 HORTENSIA SHANKS MD E884.5 FALL FROM OTH FURNITURE 10/22/2013 HORTENSIA SHANKS MD 720.2 SACROILIITIS NEC 10/22/2013 HORTENSIA SHANKS MD 720.2 SACROILIITIS NEC 05/10/2014 MICHELLE LUCAS 272.0 PURE HYPERCHOLESTEROLEM 11/04/2014 HORTENSIA SHANKS MD 244.9 HYPOTHYROIDISM NOS 06/06/2015 SARKIS ARVIZU 729.5 PAIN IN LIMB 06/06/2015 SARKIS ARVIZU 729.5 PAIN IN LIMB 06/07/2015 LIZZY UMANZOR 729.5 PAIN IN LIMB 08/02/2015 HORTENSIA SHANKS MD 244.9 HYPOTHYROIDISM NOS 08/02/2015 HORTENSIA SHANKS MD 285.9 ANEMIA NOS 08/02/2015 HORTENSIA SHANKS MD 311 DEPRESSIVE DISORDER NEC 08/02/2015 HORTENSIA SHANKS MD 627.8 MENOPAUSAL DISORDER NEC 08/02/2015 HORTENSIA SHANKS MD 780.79 OTHER MALAISE & FATIGUE 08/02/2015 HORTENSIA SHANKS MD 789.00 ABDOMINAL PAIN, UNSPECIF 08/02/2015 HORTENSIA SHANKS MD V58.69 FUR STYLIST MEDICATION USE 08/02/2015 HORTENSIA SHANKS MD 244.9 HYPOTHYROIDISM NOS 08/02/2015 HORTENSIA SHANKS MD 285.9 ANEMIA NOS 08/02/2015 HORTENSIA SHANKS MD 311 DEPRESSIVE DISORDER NEC 08/02/2015 HORTENSIA SHANKS MD 627.8 MENOPAUSAL DISORDER NEC 08/02/2015 HORTENSIA SHANKS MD 780.79 OTHER MALAISE & FATIGUE 08/02/2015 HORTENSIA SHANKS MD 785.1 PALPITATIONS 08/02/2015 HORTENSIA SHANKS MD 789.00 ABDOMINAL PAIN, UNSPECIF 08/02/2015 HORTENSIA SHANKS MD V58.69 SHELTER MEDICATION USE 08/04/2015 HORTENSIA SHANKS MD 789.00 ABDOMINAL PAIN, UNSPECIF 08/08/2015 HORTENSIA SHANKS MD 244.9 HYPOTHYROIDISM NOS 08/08/2015 HORTENSIA SHANKS MD 780.79 OTHER MALAISE & FATIGUE 08/08/2015 HORTENSIA SHANKS MD 785.1 PALPITATIONS 08/08/2015 HORTENSIA SHANKS MD 789.00 ABDOMINAL PAIN, UNSPECIF 11/22/2015 ELADIA FRANK, KEZIA R Keeley Z01.818 Encounter for other preprocedural examination 11/22/2015 ELADIA FRANK, KEZIA Mina Z01.818 Encounter for other preprocedural examination 09/10/2016 HORTENSIA SHANKS MD D64.9 Anemia, unspecified 09/10/2016 HORTENSIA SHANKS MD E05.90 Thyrotoxicosis, unsp without thyrotoxic crisis or storm 09/10/2016 HORTENSIA SHANKS MD F32.9 Major depressive disorder, single episode, unspecified 09/10/2016 HORTENSIA SHANKS MD G47.00 Insomnia, unspecified 09/10/2016 HORTENSIA SHANKS MD R53.83 Other fatigue 01/22/2017 ELADIA FRANK, KEZIA R Keeley M25.522 Pain in left elbow 01/22/2017 KEZIA MONTILLA MD M79.645 Pain in left finger(s) 02/25/2017 HORTENSIA SAHNKS MD E03.9 Hypothyroidism, unspecified 02/25/2017 HORTENSIA SHANKS MD F22 Delusional disorders 02/25/2017 HORTENSIA SHANKS MD F32.9 Major depressive disorder, single episode, unspecified 02/25/2017 HORTENSIA SHANKS MD G25.81 Restless legs syndrome 03/01/2017 MELINDA FRANK, AMANDA Mina E03.9 Hypothyroidism, unspecified 03/01/2017 AMANDA LAWRENCE MD F31.2 Bipolar disord, crnt episode manic severe w psych features 03/01/2017 AMANDA LAWRENCE MD G25.81 Restless legs syndrome 03/01/2017 AMANDA LAWRENCE MD I10 Essential (primary) hypertension 03/27/2017 CHANTELL ROSAS NÉSTOR Supa Mina D17.23 Benign lipomatous neoplasm of skin, subcu of right leg 04/12/2017 LIZZY UMANZOR E03.9 Hypothyroidism, unspecified 05/13/2017 HORTENSIA SHANKS MD E03.9 Hypothyroidism, unspecified 05/13/2017 HORTENSIA SHANKS MD G25.81 Restless legs syndrome 05/13/2017 HORTENSIA SHANKS MD R32 Unspecified urinary incontinence 05/13/2017 HORTENSIA SHANKS MD R53.83 Other fatigue 08/15/2017 HORTENSIA SHANKS MD M25.462 Effusion, left knee 08/15/2017 HORTENSIA SAHNKS MD M25.562 Pain in left knee 08/15/2017 HORTENSIA SHANKS MD W17.2XXA Fall into hole, initial encounter 08/15/2017 HORTENSIA SHANKS MD Y92.[address] in single-family (private) house as place 08/15/2017 HORTENSIA SHANKS MD Y93.9 Activity, unspecified 08/15/2017 HORTENSIA SHANKS MD Y99.9 Unspecified external cause status 08/27/2017 HORTENSIA SHANKS MD M79.605 Pain in left leg 08/28/2017 HORTENSIA SHANKS MD M25.562 Pain in left knee 08/28/2017 HORTENSIA SHANKS MD M79.605 Pain in left leg 11/27/2017 SARKIS ARVIZU R10.84 Generalized abdominal pain 11/27/2017 SARKIS ARVIZU K46.0 Unsp abdominal hernia with obstruction, without gangrene 11/27/2017 SARKIS ARVIZU K56.609 Unsp intestnl obst, unsp as to partial versus complete obst 01/14/2018 Alex Loya MD 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 03/04/2018 SARKIS ARVIZU D I10 Essential (primary) hypertension 03/04/2018 SARKIS ARVIZU D D N39.0 Urinary tract infection, site not specified 03/04/2018 SARKIS ARVIZU D Z00.00 Encntr for general adult medical exam w/o abnormal findings 03/04/2018 SARKIS ARVIZU D Z13.220 Encounter for screening for lipoid disorders 03/11/2018 SARKIS ARVIZU D I10 Essential (primary) hypertension 03/11/2018 SARKIS ARVIZU D Z00.00 Encntr for general adult medical exam w/o abnormal findings 03/11/2018 SARKIS ARVIZU Z13.220 Encounter for screening for lipoid disorders 04/15/2018 D R10.10 Upper abdominal pain, unspecified 04/15/2018 D R11.2 Nausea with vomiting, unspecified 04/15/2018 D R19.7 Diarrhea, unspecified 04/27/2018 Vincenzo FRANK, Alex Z68.23 Body Mass Index 23.0-23.9 Adult 05/13/2018 HORTENSIA SHANKS MD E55.9 Vitamin D deficiency, unspecified 05/13/2018 RIMMA FRANK, HORTENSIA Mina Z79.899 Other correction (current) drug therapy 08/01/2018 HORTENSIA SHANKS MD N39.0 Urinary tract infection, site not specified 08/01/2018 HORTENSIA SHANKS MD R19.7 Diarrhea, unspecified 08/01/2018 HORTENSIA SHANKS MD R22.1 Localized swelling, mass and lump, neck 08/01/2018 HORTENSIA SHANKS MD R30.9 Painful micturition, unspecified 08/01/2018 HORTENSIA SHANKS MD R35.0 Frequency of micturition 08/01/2018 HORTENSIA SHANKS MD R49.0 Dysphonia 08/06/2018 HORTENSIA SHANKS MD R19.7 Diarrhea, unspecified 09/05/2018 KAIT GUAN MD E03.9 Hypothyroidism, unspecified 09/05/2018 KAIT GUAN MD R13.10 Dysphagia, unspecified 09/05/2018 KAIT GUAN MD R49.0 Dysphonia 09/18/2018 KAIT GUAN MD E07.9 Disorder of thyroid, unspecified 09/18/2018 KAIT GUAN MD R13.10 Dysphagia, unspecified 09/18/2018 KAIT GUAN MD R49.0 Dysphonia 10/23/2018 KAIT GUAN MD Z01.818 Encounter for other preprocedural examination 10/24/2018 KAIT GUAN MD Ot Z01.818 ENCOUNTER FOR OTHER PREPROCEDURAL EXAMIN 10/27/2018 KAIT GUAN MD, Ot Z01.818 ENCOUNTER FOR OTHER PREPROCEDURAL EXAMIN 10/27/2018 KAIT GUAN MD, Ot Z01.818 ENCOUNTER FOR OTHER PREPROCEDURAL EXAMIN Procedures Code [place] [address] FLUOROGUIDE FOR SPINE INJECT RIMMA FRANK, HORTENSIA Meraz 11/27/2012 85921 OFFICE/OUTPATIENT VISIT, ANUEL SHANKS MD, HORTENSIA Meraz 11/27/2012 J3301 TRIAMCINOLONE ACET INJ NOS RIMMA FRANK, HORTENSIA Meraz 11/27/2012 Q9961 HOCM 250-299MG/ML IODINE, 1ML RIMMA FRANK, HORTENSIA Meraz 11/27/2012 49064 INJECT SPINE C/T WILL JUDD 11/27/2012 44528 OFFICE/OUTPATIENT VISIT, ANUEL SHANKS MD, HORTENSIA Meraz 01/15/2013 08797 INJ TRIGGER POINT, 2 WILL CONWAY 01/15/2013 49841 X-RAY EXAM OF SHOULDER ELADIA FRANK, KEZIA R 01/20/2013 01972 PT RE-EVALUATION ELADIA FRANK, KEZIA R 01/22/2013 07206 THERAPEUTIC EXERCISES ELADIA FRANK, KEZIA R 01/22/2013 46413 THERAPEUTIC EXERCISES ELADIA FRANK, KEZIA R 02/23/2013 80374 OFFICE/OUTPATIENT VISIT, ANUEL SHANKS MD, HORTENSIA Meraz 02/26/2013 44062 INJ TRIGGER POINT, 2 WILL CONWAY 02/26/2013 45530 OFFICE/OUTPATIENT VISIT, ANUEL SHANKS MD, HORTENSIA Meraz 03/26/2013 16445 INJ TRIGGER POINT, /2 CRESENCIO LEIVA 03/26/2013 88819 ROUTINE VENIPUNCTURE MICHELLE LUCAS 04/01/2013 06882 COMPLETE CBC W/AUTO DIFF WBC MICHELLE LUCAS 04/01/2013 54868 LYME DISEASE ANTIBODY DANIEL SHANNON, MICHELLE 04/01/2013 35469 EHRLICHIA ANTIBODY DANIEL SHANNON, [facility] 04/01/2013 38387 RICKETTSIA ANTIBODY DANIEL SHANNON, [facility] 04/01/2013 81018 ROUTINE VENIPUNCTURE RIMMA FRANK, HORTENSIA Meraz 05/26/2013 95961 ASSAY THYROID STIM HORMONE RIMMA FRANK, HORTENSIA Mearz 05/26/2013 44173 ROUTINE VENIPUNCTURE RIMMA FRANK, HORTENSIA Mreaz 09/21/2013 58415 ASSAY THYROID STIM HORMONE RIMMA FRANK, HORTENSIA Meraz 09/21/2013 48003 EXC H-F-NK-SP B9+EVA 0.6-1 NÉSTOR ABDUL DO 09/30/2013 23297 TISSUE EXAM BY PATHOLOGIST NÉSTOR ABDUL DO 09/30/2013 67718 EXC TR-EXT B9+EVA 1.1-2 CM RIMMA FRANK, HORTENSIA Meraz 10/01/2013 47856 X-RAY EXAM OF LOWER SPINE RIMMA FRANK, HORTENSIA Meraz 10/09/2013 21141 X-RAY EXAM OF PELVIS RIMMA FRANK, HORTENSIA Meraz 10/09/2013 01613 X-RAY EXAM OF HIP RIMMA FRANK, HORTENSIA Meraz 10/09/2013 10618 INJECT SACROILIAC JOINT WILL JUDD 10/22/2013 89450 FLUOROGUIDE FOR SPINE INJECT RIMMA FRANK, HORTENSIA Meraz 10/22/2013 G0260 Inj for sacroiliac jt anesth RIMMA FRANK, HORTENSIA Merza 10/22/2013 J1040 METHLPREDNISOLONE ACETATE RIMMA FRANK, HORTENSIA Meraz 10/22/2013 05875 INJECT SACROILIAC JOINT WILL JUDD 10/22/2013 68487 ROUTINE VENIPUNCTURE DANIEL SHANNON, MICHELLE 05/10/2014 16804 COMPREHEN METABOLIC PANEL DANIEL SHANNON, MICHELLE 05/10/2014 92754 LIPID PANEL DANIEL SHANNON, MICHELLE 05/10/2014 83456 ASSAY THYROID STIM HORMONE DANIEL SHANNON, MICHELLE 05/10/2014 46745 COMPLETE CBC W/AUTO DIFF WBC DANIEL SHANNON, MICHELLE 05/10/2014 23049 ROUTINE VENIPUNCTURE RIMMA FRANK, HORTENSIA Meraz 11/04/2014 64728 ASSAY THYROID STIM HORMONE RIMMA FRANK, HORTENSIA Meraz 11/04/2014 05217 EMERGENCY DEPT VISIT SARKIS ARVIZU 06/06/2015 40117 EMERGENCY DEPT VISIT SARKIS ARVIZU Keeley 06/06/2015 39780 ROUTINE VENIPUNCTURE LIZZY UMANZOR Mariya 06/07/2015 19732 X-RAY EXAM OF HAND LIZZY UMANZOR Mariya 06/07/2015 24745 COMPREHEN METABOLIC PANEL LIZZY UMANZOR Mariya 06/07/2015 80254 ASSAY OF BLOOD/URIC ACID LIZZY UMANZOR Mariya 06/07/2015 40502 COMPLETE CBC W/AUTO DIFF WBC LIZZY UMANZOR Mariya 06/07/2015 53720 RBC SED RATE, NONAUTOMATED LIZZY UMANZOR Mariya 06/07/2015 21447 ROUTINE VENIPUNCTURE RIMMA FRANK, HORTENSIA Meraz 08/02/2015 66806 URINALYSIS AUTO W/SCOPE RIMMA FRANK, HORTENSIA Meraz 08/02/2015 83276 VITAMIN D 25 HYDROXY RIMMA FRANK, HORTENSIA Meraz 08/02/2015 23766 ASSAY OF IRON RIMMA FRANK, HORTENSIA Meraz 08/02/2015 17552 ASSAY THYROID STIM HORMONE RIMMA FRANK, HORTENSIA Meraz 08/02/2015 22386 COMPLETE CBC W/AUTO DIFF WBC RIMMA FRANK, HORTENSIA Meraz 08/02/2015 62446 CULTURE OTHR SPECIMN AEROBIC RIMMA FRANK, HORTENSIA Meraz 08/02/2015 16117 SMEAR GRAM STAIN RIMMA FRANK, HORTENSIA Meraz 08/02/2015 45497 ELECTROCARDIOGRAM TRACING RIMMA FRANK, HORTENSIA Meraz 08/02/2015 38814 ELECTROCARDIOGRAM REPORT RIMMA FRANK, HORTENSIA Meraz 08/02/2015 66645 ROUTINE VENIPUNCTURE RIMMA FRANK, HORTENSIA Meraz 08/04/2015 09493 ASSAY OF CREATININE RIMMA FRANK, HORTENSIA Meraz 08/04/2015 93661 ASSAY OF UREA NITROGEN RIMMA FRANK, HORTENSIA Meraz 08/04/[address] ABD & PELV 1/> CJ SHANKS MD, HORTENSIA Meraz 08/08/2015 56711 TTE W/DOPPLER ROXANA SHANKS MD, HORTENSIA Meraz 08/08/2015 J7050 NORMAL SALINE SOLUTION INFUS RIMMA FARNK, HORTENSIA Meraz 08/08/2015 Q9967 LOCM 300-399MG/ML IODINE, 1ML RIMMA FRANK, HORTENSIA Meraz 08/08/2015 20221 ROUTINE VENIPUNCTURE ELADIA FRANK, KEZIA Whittaker 11/22/2015 80201 METABOLIC PANEL TOTAL CA ELADIA FRANK, KEZIA R 11/22/2015 00725 COMPLETE CBC W/AUTO DIFF WBC ELADIA FRANK, KEZIA R 11/22/2015 85025 ELECTROCARDIOGRAM TRACING ELADIA FRANK, KEZIA R 11/22/2015 61666 ELECTROCARDIOGRAM REPORT RIMMA FRANK, HORTENSIA L 11/22/2015 05828 ROUTINE VENIPUNCTURE RIMMA FRANK, HORTENSIA L 09/10/2016 23094 COMPREHEN METABOLIC PANEL RIMMA FRANK, HORTENSIA L 09/10/2016 86407 LIPID PANEL RIMMA FRANK, HORTENSIA L 09/10/2016 16039 ASSAY OF IRON RIMMA FRANK, HORTENSIA L 09/10/2016 30126 ASSAY OF MAGNESIUM RIMMA FRANK, HORTENSIA L 09/10/2016 96956 ASSAY OF PHOSPHORUS RIMMA FRANK, HORTENSIA L 09/10/2016 43021 ASSAY THYROID STIM HORMONE RIMMA FRANK, HORTENSIA L 09/10/2016 73555 COMPLETE CBC W/AUTO DIFF WBC RIMMA FRANK, HORTENSIA L 09/10/2016 62857 X-RAY EXAM OF ELBOW ELADIA FRANK, KEZIA R 01/22/2017 06343 X-RAY EXAM OF HAND ELADIA FRANK, KEZIA R 01/22/2017 91588 ROUTINE VENIPUNCTURE NAPOLEON VILLATORO LIZZY L 02/25/2017 00754 COMPREHEN METABOLIC PANEL NAPOLEON VILLATORO LIZZY L 02/25/2017 67985 ASSAY THYROID STIM HORMONE NPAOLEON VILLATORO LIZZY L 02/25/2017 14973 COMPLETE CBC W/AUTO DIFF WBC NAPOLEON VILLATORONEGROLIZZY L 02/25/2017 79905 EMERGENCY DEPT VISIT RIMMA FRANK, HORTENSIA Meraz 02/25/2017 03958 EXC TR-EXT B9+EVA >4.0 CM NÉSTOR ABDUL DO 03/27/2017 00137 TISSUE EXAM BY PATHOLOGIST NÉSTOR ABDUL DO 03/27/2017 71475 ROUTINE VENIPUNCTURE NAPOLEON VILLATORO LIZZY L 04/12/2017 21500 ASSAY THYROID STIM HORMONE NAPOLEON VILLATORO LIZZY L 04/12/2017 27545 ROUTINE VENIPUNCTURE RIMMA FRANK, HORTENSIA Meraz 05/13/2017 26468 COMPREHEN METABOLIC PANEL RIMMA FRANK, HORTENSIA Meraz 05/13/2017 70585 URINALYSIS AUTO W/SCOPE RIMMA FRANK, HORTENSIA Meraz 05/13/2017 70445 ASSAY OF MAGNESIUM RIMMA FRANK, HORTENSIA Meraz 05/13/2017 57230 ASSAY OF PHOSPHORUS RIMMA FRANK, HORTENSIA Meraz 05/13/2017 07245 ASSAY THYROID STIM HORMONE RIMMA FRANK, HORTENSIA Meraz 05/13/2017 84922 COMPLETE CBC W/AUTO DIFF WBC RIMMA FRANK, HORTENSIA Meraz 05/13/2017 96154 THER/PROPH/DIAG INJ SC/IM RIMMA FRANK, HORTENSIA Meraz 08/15/2017 06396 EMERGENCY DEPT VISIT RIMMA FRANK, HORTENSIA Meraz 08/15/2017 J1885 KETOROLAC TROMETHAMINE INJ RIMMA FRANK, HORTENSIA Meraz 08/15/2017 50607 X-RAY EXAM KNEE 4 OR MORE RIMMA FRANK, HORTENSIA Meraz 08/27/2017 50095 X-RAY EXAM OF LOWER LEG RIMMA FRANK, HORTENSIA Meraz 08/27/2017 98851 MRI JNT OF LWR EXTRE W/O DAVIDE SHANKS MD, HORTENSIA Meraz 08/28/2017 54243 EXTREMITY STUDY RIMMA FRANK, HORTENSIA Meraz 08/28/2017 A0425 GROUND MILEAGE SARKIS ARVIZU 11/27/2017 A0427 ALS1-EMERGENCY SARKIS ARVIZU 11/27/[address] ABD & PELV 1/> REGNS SARKIS ARVIZU 11/27/2017 57543 COMPREHEN METABOLIC PANEL SARKIS ARVIZU 11/27/2017 08244 URINALYSIS AUTO W/SCOPE SARKIS ARVIZU 11/27/2017 40444 COMPLETE CBC W/AUTO DIFF WBC SARKIS ARVIZU 11/27/2017 22176 THER/PROPH/DIAG INJ IV PUSH SARKIS ARVIZU 11/27/2017 85097 TX/PRO/DX INJ NEW DRUG ADDON SARKIS ARVIZU 11/27/2017 19635 TX/PRO/DX INJ SAME DRUG MOLDER INFLATED BALL SARKIS ARVIZU 11/27/2017 74577 EMERGENCY DEPT VISIT SARKIS ARVIZU 11/27/2017 J2405 ONDANSETRON HCL INJECTION SARKIS ARVIZU 11/27/2017 J3010 FENTANYL CITRATE INJECITON SARKIS ARVIZU 11/27/2017 Q9967 LOCM 300-399MG/ML IODINE, 1ML SARKIS ARVIZU 11/27/2017 44291 CULTURE AEROBIC IDENTIFY SARKIS ARVIZU 03/04/2018 81671 URINE CULTURE/COLONY COUNT SARKIS ARVIZU D 03/04/2018 70561 MICROBE SUSCEPTIBLE ANGÉLICA SARKIS ARVIZU D 03/04/2018 90044 ROUTINE VENIPUNCTURE SARKIS ARVIZU D 03/11/2018 25399 LIPID PANEL SARKIS ARVIZU D 03/11/2018 22442 ELECTROCARDIOGRAM TRACING SARKIS ARVIZU D 03/11/[address] ABD & PELV 1/> REGNS NAPOLEON VILLATORO, LIZZY L 04/15/2018 Q9967 LOCM 300-399MG/ML IODINE, 1ML NAPOLEON VILLATORO, LIZZY L 04/15/2018 87854 ROUTINE VENIPUNCTURE RIMMA FRANK, HORTENSIA Meraz 05/13/2018 75266 VITAMIN D 25 HYDROXY RIMMA FRANK, HORTENSIA Meraz 05/13/2018 20499 ASSAY THYROID STIM HORMONE RIMMA FRANK, HORTENSIA Meraz 05/13/2018 75682 ROUTINE VENIPUNCTURE RIMMA FRANK, HORTENSAI Meraz 08/01/2018 80428 COMPREHEN METABOLIC PANEL RIMMA FRANK, HORTENSIA Meraz 08/01/2018 89902 ASSAY OF MAGNESIUM RIMMA FRANK, HORTENSIA Meraz 08/01/2018 70133 ASSAY OF PHOSPHORUS RIMMA FRANK, HORTENSIA Meraz 08/01/2018 38319 ASSAY THYROID STIM HORMONE RIMMA FRANK, HORTENSIA Meraz 08/01/2018 72784 COMPLETE CBC W/AUTO DIFF WBC RIMMA FRANK, HORTENSIA Meraz 08/01/2018 48792 CULTURE AEROBIC IDENTIFY RIMMA FRANK, HORTENSIA Meraz 08/01/2018 96765 URINE CULTURE/COLONY COUNT RIMMA FRANK, HORTENSIA Meraz 08/01/2018 42459 MICROBE SUSCEPTIBLE ANGÉLICA RIMMA FRANK, HORTENSIA Meraz 08/01/2018 67390 ECHO EXAM OF ABDOMEN RIMMA FRANK, HORTENSIA Meraz 08/06/2018 27362 ROUTINE VENIPUNCTURE KIAT GUAN MD 09/05/[address] SOFT TISSUE NECK W/DYE KAIT GUAN MD 09/05/2018 26884 ASSAY OF CREATININE KAIT GUAN MD 09/05/2018 53794 ASSAY OF FREE THYROXINE KAIT GUAN MD 09/05/2018 98407 ASSAY THYROID STIM HORMONE KAIT GUAN MD 09/05/2018 75684 THYROGLOBULIN ANTIBODY KAIT GUAN MD 09/05/2018 Q9967 LOCM 300-399MG/ML IODINE, 1ML KAIT GUAN MD 09/05/2018 34684 CONTRAST X-RAY ESOPHAGUS KAIT GUAN MD 09/18/2018 73262 ROUTINE VENIPUNCTURE KAIT GUAN MD 10/23/2018 35654 METABOLIC PANEL TOTAL CA KAIT GUAN MD 10/23/2018 28636 COMPLETE CBC W/AUTO DIFF WBC KAIT GUAN MD 10/23/2018 75158 ELECTROCARDIOGRAM TRACING KAIT GUAN MD 10/23/2018 Results Test Result Range COMPLETE BLOOD COUNT - 04/01/13 15:33 Platelet 288 10^3u 142-424 MPV 10.4 FL 9.4-12.4 [place] # 0.62 10^3u 0.0-1.0 RBC 4.49 10^6u 4.04-6.13 [place] % 10.9 % 0-12 RDW 13.1 % 11.6-14.8 Neut # 3.12 10^3u 2.0-6.9 Neut % 54.9 % 37-80 WBC 5.69 10^3u 4.60-10.20 MCV 94.0 FL 80.0-97.0 Baso # 0.03 10^3u 0.0-0.1 Baso % 0.5 % 0-2 Eos # 0.15 10^3u 0-0.7 Eos % 2.6 % 0-7 Lymph % 31.1 % 10-50 MCHC 33.4 G/DL 31.8-35.4 MCH 31.4 PG 27.0-31.2 Lymph # 1.77 10^3u 0.6-3.4 HGB 14.1 G/DL 12.2-18.1 HCT 42.2 % 37.7-53.7 Lyme Disease - 04/01/13 15:33 Lyme Disease < OR=0.90 index [place] Spotted Fever - 04/01/13 15:33 RMSF IgG DETECTED RMSF IgM NOT DETECTED E. [place]affe[place] IgG/IgM - 04/01/13 15:44 E. [place] Interpretation SMR E. [place] IgG SMR E. [place] IgM [facility] TSH - 05/26/13 15:03 TSH 7.37 UIUML 0.35-4.94 TSH - 09/21/13 16:00 TSH 9.35 UIUML 0.35-4.94 COMPLETE BLOOD COUNT - 05/10/14 09:39 Platelet 242 10^3u 142-424 MPV 9.8 FL 9.4-12.4 [place] # 0.57 10^3u 0.0-1.0 RBC 4.44 10^6u 4.04-6.13 [place] % 12.4 % 0-12 RDW 12.9 % 11.6-14.8 Neut # 2.46 10^3u 2.0-6.9 Neut % 53.4 % 37-80 WBC 4.60 10^3u 4.60-10.20 MCV 95.0 FL 80.0-97.0 Baso # 0.03 10^3u 0.0-0.1 Baso % 0.7 % 0-2 Eos # 0.13 10^3u 0-0.7 Eos % 2.8 % 0-7 Lymph % 30.7 % 10-50 MCHC 32.9 G/DL 31.8-35.4 MCH 31.3 PG 27.0-31.2 Lymph # 1.41 10^3u 0.6-3.4 HGB 13.9 G/DL 12.2-18.1 HCT 42.2 % 37.7-53.7 TSH - 05/10/14 09:39 TSH 10.41 UIUML 0.35-4.94 CMP - 05/10/14 09:39 Osmo Calculated 279 MOSM 261-280 Sodium 144 MMOLL 137-145 T. Protein 6.7 G/DL 6.3-8.2 Potassium 4.4 MMOLL 3.6-5.0 T Bili 0.3 MG/DL 0.2-1.3 Calcium 9.8 MG/DL 8.4-10.2 BUN 18 MG/DL 7-21 Chloride 104 MMOLL 98-107 AST 32 U/L 15-46 ALT 24 U/L 7-56 Albumin 3.4 G/DL 3.5-5.0 A/G Ratio 1.0 RATIO 1.2-2.2 Bun/Creat 20.8 RATIO 7-25 Alk Phos 88 U/L 38-126 CO2 34 MMOLL 22-30 Glucose 85 MG/DL 65-110 Globulin 3.3 2.4-3.5 Creatinine 0.9 MG/DL 0.7-1.5 Lipid Profile - 05/10/14 09:39 HDL 73.0 MG/DL 35-100 VLDL 8 0-21 Triglyceride 40 MG/DL 35-160 Cholesterol 169 MG/DL 130-200 LDL Calculated 89 0-130 TSH - 11/04/14 16:37 TSH 12.32 UIUML 0.35-4.94 COMPLETE BLOOD COUNT - 06/07/15 16:59 Platelet 327 10^3u 142-424 MPV 9.6 FL 9.4-12.4 [place] # 0.73 10^3u 0.0-1.0 RBC 3.94 10^6u 4.04-6.13 [place] % 12.1 % 0-12 RDW 16.6 % 11.6-14.8 Neut # 3.25 10^3u 2.0-6.9 Neut % 53.7 % 37-80 WBC 6.05 10^3u 4.60-10.20 MCV 88.6 FL 80.0-97.0 Baso # 0.07 10^3u 0.0-0.1 Baso % 1.2 % 0-2 Eos # 0.19 10^3u 0-0.7 Eos % 3.1 % 0-7 Lymph % 29.9 % 10-50 MCHC 30.1 G/DL 31.8-35.4 MCH 26.6 PG 27.0-31.2 Lymph # 1.81 10^3u 0.6-3.4 HGB 10.5 G/DL 12.2-18.1 HCT 34.9 % 37.7-53.7 CMP - 06/07/15 17:07 Osmo Calculated 270 MOSM 261-280 Sodium 139 MMOLL 137-145 T. Protein 6.9 G/DL 6.3-8.2 Potassium 4.2 MMOLL 3.6-5.0 T Bili 0.2 MG/DL 0.2-1.3 Calcium 9.7 MG/DL 8.4-10.2 BUN 21 MG/DL 7-21 Chloride 100 MMOLL 98-107 AST 34 U/L 15-46 ALT 28 U/L 7-56 Albumin 4.0 G/DL 3.5-5.0 A/G Ratio 1.4 RATIO 1.2-2.2 Bun/Creat 27.9 RATIO 7-25 Alk Phos 89 U/L 38-126 CO2 31 MMOLL 22-30 Glucose 81 MG/DL 65-110 Globulin 2.9 2.4-3.5 Creatinine 0.7 MG/DL 0.7-1.5 Uric Acid - 06/07/15 17:07 Uric Acid 3.6 MG/DL 2.5-8.0 Sed Rate (ESR) - 06/07/15 17:15 Sed Rate (ESR) 13 MM/hr 5-20 BUN - 08/04/15 12:57 BUN 22 MG/DL 7-26 Creatinine - 08/04/15 12:57 Creatinine 1.0 MG/DL 0.6-1.3 EKG - 08/10/15 03:26 EKG [facility] COMPLETE BLOOD COUNT - 11/22/15 09:10 Platelet 306 10^3u 142-424 MPV 10.0 FL 9.4-12.4 [place] # 1.14 10^3u 0.0-1.0 RBC 4.54 10^6u 4.04-6.13 [place] % 12.4 % 0-12 RDW 14.0 % 11.6-14.8 Neut # 5.98 10^3u 2.0-6.9 Neut % 65.3 % 37-80 WBC 9.16 10^3u 4.60-10.20 MCV 95.6 FL 80.0-97.0 Baso # 0.05 10^3u 0.0-0.1 Baso % 0.5 % 0-2 Eos # 0.17 10^3u 0-0.7 Eos % 1.9 % 0-7 Lymph % 19.9 % 10-50 MCHC 32.0 G/DL 31.8-35.4 MCH 30.6 PG 27.0-31.2 Lymph # 1.82 10^3u 0.6-3.4 HGB 13.9 G/DL 12.2-18.1 HCT 43.4 % 37.7-53.7 BMP - 11/22/15 09:25 Osmo Calculated 268 MOSM 261-280 Sodium 139 MMOLL 136-145 Potassium 4.1 MMOLL 3.5-5.1 Calcium 10.0 MG/DL 8.4-10.2 BUN 18 MG/DL 7-26 Chloride 102 MMOLL 98-107 Anion GAP 8 MMOLL 5-16 Bun/Creat 23 RATIO 7-25 CO2 29 MMOLL 22-29 Glucose 46 MG/DL 70-99 Creatinine 0.8 MG/DL 0.6-1.3 EKG - 11/29/15 03:39 EKG [facility] COMPLETE BLOOD COUNT - 09/10/16 11:46 Platelet 299 10^3u 142-424 MPV 10.3 FL 9.4-12.4 [place] # 0.62 10^3u 0.0-1.0 RBC 4.76 10^6u 4.04-6.13 [place] % 8.6 % 0-12 RDW 13.5 % 11.6-14.8 Neut # 4.69 10^3u 2.0-6.9 Neut % 64.8 % 37-80 WBC 7.23 10^3u 4.60-10.20 MCV 94.3 FL 80.0-97.0 Baso # 0.03 10^3u 0.0-0.1 Baso % 0.4 % 0-2 Eos # 0.07 10^3u 0-0.7 Eos % 1.0 % 0-7 Lymph % 25.2 % 10-50 MCHC 32.7 G/DL 31.8-35.4 MCH 30.9 PG 27.0-31.2 Lymph # 1.82 10^3u 0.6-3.4 HGB 14.7 G/DL 12.2-18.1 HCT 44.9 % 37.7-53.7 CMP - 09/10/16 12:11 Osmo Calculated 268 MOSM 261-280 Sodium 139 MMOLL 136-145 T. Protein 7.2 G/DL 6.4-8.3 Potassium 4.1 MMOLL 3.5-5.1 T Bili 0.5 MG/DL 0.2-1.2 Calcium 10.2 MG/DL 8.4-10.2 BUN 14 MG/DL 7-26 Chloride 104 MMOLL 98-107 AST 29 U/L 5-34 ALT 14 U/L 0-55 Albumin 3.7 G/DL 3.5-5.0 A/G Ratio 1.1 RATIO 1.2-2.2 Bun/Creat 16 RATIO 7-25 Alk Phos 106 U/L 40-150 CO2 27 MMOLL 22-29 Glucose 89 MG/DL 70-99 Globulin 3.5 G/DL 2.4-3.5 Creatinine 0.9 MG/DL 0.6-1.3 Lipid Profile - 09/10/16 12:11 HDL 73 MG/DL 40-60 VLDL 9 MG/DL 0-21 Triglyceride 44 MG/DL 0-149 Cholesterol 189 MG/DL 0-199 LDL Calculated 107 MG/DL 0-130 TSH - 09/10/16 12:11 TSH 9.79 UIUML 0.35-4.94 Magnesium - 09/10/16 12:11 Magnesium 2.6 MG/DL 1.6-2.8 Phosphorus - 09/10/16 12:11 Phosphorus 3.8 MG/DL 2.3-4.7 Iron - 09/10/16 12:11 Iron 79 UG/DL 50-175 Encounters ACCT No. Visit Date/Time Discharge Status Pt. Type Provider Facility Loc./Unit Complaint [id number] 10/23/2018 09:47:00 10/23/2018 09:47:00 DIS Outpatient KAIT GUAN MD LAB [id number] 09/18/2018 07:05:00 09/18/2018 07:05:00 DIS Outpatient KAIT GUAN MD RAD [id number] 09/05/2018 08:02:00 09/05/2018 08:02:00 DIS Outpatient KAIT GUAN MD RAD [id number] 08/06/2018 07:46:00 08/06/2018 07:46:00 DIS Outpatient HORTENSIA SHANKS MD RAD [id number] 08/01/2018 14:36:00 08/01/2018 14:36:00 DIS Outpatient HORTENSIA SHANKS MD LAB [id number] 05/13/2018 08:34:00 05/13/2018 08:34:00 DIS Outpatient HORTENSIA SHANKS MD LAB [id number] 03/11/2018 08:27:00 03/11/2018 08:27:00 DIS Outpatient MEGHA [facility] LAB [id number] 03/04/2018 17:59:00 03/04/2018 17:59:00 DIS Outpatient MEGHA [facility] LAB [id number] 11/27/2017 16:33:00 11/27/2017 19:00:00 DIS Emergency MEGHA [facility] ER [id number] 11/27/2017 18:45:00 11/27/2017 18:45:00 DIS Outpatient MEGHA [facility] AMB [id number] 08/28/2017 10:35:00 08/28/2017 10:35:00 DIS Outpatient RIMMA FRANK, [facility] RAD [id number] 08/27/2017 16:50:00 08/27/2017 16:50:00 DIS Outpatient RIMMA FRANK, [facility] RAD [id number] 08/15/2017 20:35:00 08/15/2017 21:25:00 DIS Emergency RIMMA FRANK, [facility] ER [id number] 05/13/2017 12:33:00 05/13/2017 12:33:00 DIS Outpatient RIMMA FRANK, [facility] LAB [id number] 04/12/2017 12:20:00 04/12/2017 12:20:00 [id number] 03/27/2017 14:30:00 03/27/2017 15:30:00 DIS Outpatient NÉSTOR ABDUL DO [facility] [id number] 02/25/2017 22:31:00 03/01/2017 10:30:00 DIS Inpatient MELINDA FRANK, [facility] [id number] 02/25/2017 19:55:00 02/25/2017 22:30:00 DIS Emergency RIMMA FRANK, [facility] ER [id number] 01/22/2017 10:53:00 01/22/2017 10:53:00 DIS Outpatient ELADIA FRANK, [facility] RAD [id number] 09/10/2016 10:52:00 09/10/2016 10:52:00 DIS Outpatient RIMMA FRANK, [facility] OTHER [id number] 11/22/2015 08:23:00 11/22/2015 08:23:00 DIS Outpatient ELADIA FRANK, [facility] OTHER [id number] 11/22/2015 08:23:00 11/22/2015 08:23:00 DIS Outpatient ELADIA FRANK, [facility] OTHER [id number] 08/08/2015 14:04:00 08/08/2015 14:04:00 DIS Outpatient RIMMA FRANK, [facility] OTHER [id number] 08/04/2015 12:16:00 08/04/2015 23:59:59 CLS Outpatient RIMMA FRANK, [facility] OTHER [id number] 08/02/2015 16:47:00 08/02/2015 23:59:59 CLS Outpatient RIMMA FRANK, [facility] OTHER [id number] 08/02/2015 16:47:00 08/02/2015 16:47:00 DIS Outpatient RIMMA FRANK, [facility] OTHER [id number] 06/07/2015 16:18:00 06/07/2015 16:18:00 [facility] [id number] 06/06/2015 14:10:00 06/06/2015 23:59:59 CLS Outpatient MEGHA [facility] OTHER [id number] 06/06/2015 13:03:00 06/06/2015 14:00:00 DIS Emergency MEGHA [facility] ER [id number] 11/04/2014 15:49:00 11/04/2014 15:49:00 DIS Outpatient RIMMA FRANK, [facility] OTHER [id number] 05/10/2014 09:22:00 05/10/2014 09:22:00 DIS Outpatient DANIEL SHANNON [facility] OTHER [id number] 10/22/2013 13:30:00 10/22/2013 13:30:00 DIS Outpatient RIMMA FRANK, [facility] OTHER [id number] 10/22/2013 13:30:00 10/22/2013 13:30:00 DIS Outpatient RIMMA FRANK, [facility] OTHER [id number] 10/09/2013 12:24:00 10/09/2013 12:24:00 DIS Outpatient RIMMA FRANK, [facility] OTHER [id number] 10/01/2013 08:01:00 10/01/2013 09:00:00 DIS Outpatient RIMMA FRANK, [facility] OTHER [id number] 09/30/2013 16:32:00 09/30/2013 17:00:00 DIS Outpatient NÉSTOR ABDUL DO [facility] OTHER [id number] 09/21/2013 15:52:00 09/21/2013 15:52:00 DIS Outpatient RIMMA FRANK, [facility] OTHER [id number] 05/26/2013 14:59:00 05/26/2013 14:59:00 DIS Outpatient ELADIA FRANK, [facility] OTHER [id number] 04/01/2013 15:21:00 04/01/2013 15:21:00 DIS Outpatient DANIEL SHANNON, [facility] OTHER [id number] 03/26/2013 11:45:00 03/26/2013 11:45:00 DIS Outpatient RIMMA FRANK, [facility] OTHER [id number] 03/26/2013 11:45:00 03/26/2013 11:45:00 DIS Outpatient RIMMA FRANK, [facility] OTHER [id number] 02/16/2013 00:01:00 03/06/2013 15:10:00 DIS Outpatient ELADIA FRANK, [facility] OTHER [id number] 02/26/2013 10:03:00 02/26/2013 10:03:00 DIS Outpatient RIMMA FRANK, [facility] OTHER [id number] 02/26/2013 10:03:00 02/26/2013 10:03:00 DIS Outpatient RIMMA FRANK, [facility] OTHER [id number] 01/22/2013 13:28:00 02/15/2013 23:59:00 DIS Outpatient ELADIA FRANK, [facility] OTHER [id number] 01/20/2013 09:00:00 01/20/2013 09:00:00 DIS Outpatient ELADIA FRANK, [facility] OTHER [id number] 01/15/2013 11:15:00 01/15/2013 11:15:00 DIS Outpatient RIMMA FRANK, [facility] OTHER [id number] 01/15/2013 11:15:00 01/15/2013 11:15:00 DIS Outpatient RIMMA FRANK, [facility] OTHER [id number] 11/27/2012 11:00:00 11/27/2012 23:59:59 CLS Outpatient [id number] 11/27/2012 11:00:00 11/27/2012 23:59:59 CLS Outpatient RIMMA FRANK, [facility] [id number] 10/28/2018 12:59:00 Document Registration [id number] 10/28/2018 11:40:00 Document Registration [id number] 09/29/2018 14:55:00 Document Registration [id number] 09/22/2018 14:38:00 Document Registration [id number] 08/18/2018 14:25:00 Document Registration [id number] 08/18/2018 13:26:00 Document Registration [id number] 08/01/2018 14:34:00 Document Registration [id number] 07/22/2018 15:25:00 Document Registration [id number] 06/06/2018 11:21:00 Document Registration [id number] 06/06/2018 10:22:00 Document Registration [id number] 05/06/2018 12:37:00 Document Registration [id number] 05/01/2018 15:52:00 Document Registration [id number] 04/15/2018 08:33:00 Document Registration [id number] 04/09/2018 15:55:00 Document Registration [id number] 04/08/2018 10:17:00 Document Registration [id number] 03/03/2018 14:01:00 Document Registration [id number] 02/25/2018 13:49:00 Document Registration [id number] 04/14/2015 07:15:00 04/14/2015 10:10:[address] DIS In[address]ARO TANNER [facility] OPS [id number] 03/10/2015 06:15:00 03/10/2015 09:35:[address] DIS Inpatient AMPARO TANNER [facility] OPS [id number] 04/25/2017 15:48:05 04/25/2017 23:59:59 CLS Outpatient Néstor Abdul [id number] 04/16/2017 16:28:44 04/16/2017 23:59:59 CLS Outpatient Néstor Abdul [id number] 04/04/2017 17:18:18 04/04/2017 23:59:59 CLS Outpatient Néstor Abdul [id number] 11/29/2017 05:27:43 11/29/2017 11:40:00 DIS Outpatient VINCENZO [facility] PRERNA Surgery RAL ventral hernia-L gilma [id number] 11/27/2017 19:37:13 11/28/2017 09:15:00 DIS V ALEX LOYA [facility] PRERNA OBS Ventral hernia repair [id number] 06/12/2018 02:44:31 ACT Document Registration [id number] 10/27/2018 15:09:00 10/27/2018 15:23:00 DIS Outpatient KAIT GUAN MD [facility] PREOP CHRONIC SORE THROAT [id number] 10/31/2018 06:33:00 ACT Outpatient KAIT GUAN MD [facility] UNILATERAL THROAT PAIN 3-4 MONTHS [id number] 06/07/2018 13:21:00 ACT Unknown Alex Loya MD
[2018-10-31 07:05] VITALS: BP 124/78
--- NOTE | 2018-10-31 08:15 | Progress Note-Pre Operative ---
Pre-Operative Progress Note H&P Reviewed The H&P was reviewed, patient examined and no changes noted. Date Seen by Provider: Oct 31, 2018 Time Seen by Provider: 08:15 Date H&P Reviewed: Oct 31, 2018 Time H&P Reviewed: 08:15 Pre-Operative Diagnosis: Unilateral Left Sore Throat KAIT GUAN MD Oct 31, 2018 08:15
[2018-10-31] MEDS ORDERED: LACTATED RINGERS 1,000 ML IV PRN (08:19)
[2018-10-31] MEDS ORDERED: proPOfol 200 MG/20 ML (DIPRIVAN) VIAL IV ONE (08:27)
[2018-10-31] MEDS ORDERED: fentaNYL INJECTION 100 MCG/2 ML AMP ONE ×2 (08:27→09:37)
[2018-10-31] MEDS ORDERED: ONDANSETRON 4 MG/2 ML (SDV) Z0FRAN ONE (08:27)
[2018-10-31] MEDS ORDERED: LIDOCAINE PF 2% 5 ML (XYLOCAINE) VIAL ONE (08:27)
[2018-10-31] MEDS ORDERED: SUCCINYLCHOLINE INJ 100 MG/5 ML SYR ONE (08:28)
[2018-10-31] MEDS ORDERED: DEXAMETHASONE 10 MG/ML (DECADRON) 1 ML VIAL ONE (08:28)
[2018-10-31] MEDS ORDERED: NS IV 1000 ML 1,000 ML IV SCH (09:08)
--- NOTE | 2018-10-31 09:08 | Progress Note-Post Operative ---
Post-Operative Progess Note Surgeon (s)/Door Operator (s) Surgeon KAIT GUAN MD Door Operator n/a Pre-Operative Diagnosis Unilateral Left Sore Throat Post-Operative Diagnosis same Post-Op Procedure Note Date of Procedure: Oct 31, 2018 Name of Procedure Performed: Left Tonsillectomy Description & Findings Description and Findings: n/a Anesthesia Type get Estimated Blood Loss minimal Packing none. Specimen(s) collected/removed left tonsil KAIT GUAN MD Oct 31, 2018 09:08
[2018-10-31] MEDS ORDERED: APAP 325 MG/10.15 ML LIQ (TYLENOL) UDC PO PRN (09:15)
[2018-10-31] MEDS ORDERED: LIDOCAINE 2% VISCOUS 15 ML UDC PO PRN (09:15)
[2018-10-31] MEDS ORDERED: HYDROcodone/APAP 7.5MG-325 MG/15 ML (LORTAB) UDC PO PRN (09:15)
[2018-10-31] MEDS ORDERED: SEVOFLURANE (ULTANE) 15 ML INHAL SOLN ONE (09:26)
[2018-10-31] MEDS ORDERED: fentaNYL INJECTION 100 MCG/2 ML AMP IVP ONE (09:30)
[2018-10-31] MEDS ORDERED: ONDANSETRON 4 MG/2 ML (SDV) Z0FRAN IVP PRN (09:30)
[2018-10-31] MEDS ORDERED: HYDROmorphone 2 MG/ML VIAL (DILAUDID) IV ONE (09:30)
[2018-10-31 10:15] VITALS: BP 109/69
[2018-10-31 10:45] VITALS: BP 145/74
[2018-10-31 11:15] VITALS: BP 117/70
[2018-10-31] MEDS ORDERED: TETRACAINESUCKERS MT (11:33)
[2018-10-31] MEDS ORDERED: AZIT200S47 PO (11:33)
[2018-10-31] MEDS ORDERED: viscous lidocaine 2% PO (11:33)
[2018-10-31] MEDS ORDERED: HYDR15SO8 PO (11:33)
[2018-10-31] MEDS ORDERED: DEXAINTSOL PO (11:35)
[2018-10-31 12:15] VITALS: BP 117/70
--- NOTE | 2018-10-31 13:29 | Anesthesia-General Post-Op ---
General Patient Condition Mental Status/LOC: Same as Preop Cardiovascular: Satisfactory Nausea/Vomiting: Absent Respiratory: Satisfactory Pain: Controlled Complications: Absent Post Op Complications Complications None Follow Up Care/Instructions Patient Instructions None needed. Anesthesia/Patient Condition Patient Condition Patient is doing well, no complaints, stable vital signs, no apparent adverse anesthesia problems. No complications reported per nursing. DANNY DIAMOND CRNA Oct 31, 2018 13:29
== END 2018-10-31 12:24 | disposition home or self-care (01) ==
LOC: SDC 06:33
PROVIDERS: ATTEND Otolaryngology Otolaryngology/Facial Plastic Surgery
DX: J35.1 Hypertrophy of tonsils (principal); K21.9 Gastro-esophageal reflux disease without esophagitis; K44.9 Diaphragmatic hernia without obstruction or gangrene; Z79.899 Other long term (current) drug therapy
CPT/HCPCS: 87081; 88309